=== PATIENT | male | born 1985 | race Caucasian/White ===

== ENCOUNTER 2018-10-17 12:37 | Emergency (ER) | payer OTHER ==
[~2018-10-17] VITALS: Ht 170.2 cm; Wt 107.7 kg
[2018-10-17 13:20] VITALS: BP 144/84
[2018-10-17] MEDS ORDERED: KETOROLAC 60 MG/2 ML VIAL IM ONE (15:35)
[2018-10-17 16:14] VITALS: BP 130/70
== END 2018-10-17 16:13 | disposition home or self-care (01) ==
LOC: MED 12:37
DX: I10 Essential (primary) hypertension (principal); M54.6 Pain in thoracic spine; R51 Headache; F17.200 Nicotine dependence, unspecified, uncomplicated
CPT/HCPCS: 96372; 99283; J1885

== ENCOUNTER 2020-04-25 10:59 | Emergency (ER) | payer OTHER, SELFPAY ==
[~2020-04-25] VITALS: Ht 170.2 cm; Wt 108.9 kg
[~2020-04-25 10:59] MED LIST: ASPI81CT95 PO; ATOR20TA40 PO; CLOP75TA55 PO; LANTUS SUBQ
[2020-04-25 11:13] VITALS: BP 142/104
--- NOTE | 2020-04-25 11:21 | NUR ---
35 Y/O MALE BIBS C/O HIGH BLOOD PRESSURE READING THIS MORNING AND WAS TOLD TO COME TO ER BY PHYSICIAN. CURRENT BP: 142/104. DENIES ANY HEADACHE, BLURRED VISION, N/V. DENIES ANY CP/SOB/COUGH. PT DENIES HAVING A HISTORY OF HTN, WAS JUST RECENTLY DIAGNOSED WITH DIABETES. VSS. AAOX4. PMH: DIABETES Rx: BLOOD THINNERS (UNABLE TO RECALL MED, DOESNT KNOW WHY HES TAKING IT)
[2020-04-25 13:22] VITALS: BP 142/104
--- NOTE | 2020-04-25 13:22 | NUR ---
Patient discharged with v/s stable. Written and verbal after care instructions given and explained. Patient verbalized understanding. Ambulatory with steady gait. All questions addressed prior to discharge. Advised to follow up with PMD.
== END 2020-04-25 13:22 | disposition home or self-care (01) ==
LOC: MED 10:59
DX: M79.602 Pain in left arm (principal); R03.0 Elevated blood-pressure reading, without diagnosis of hypertension; E11.9 Type 2 diabetes mellitus without complications; Z79.4 Long term (current) use of insulin; Z79.82 Long term (current) use of aspirin; Z79.899 Other long term (current) drug therapy
CPT/HCPCS: 99283

== ENCOUNTER 2020-05-07 03:27 | Emergency (ER) | payer OTHER, SELFPAY ==
[~2020-05-07] VITALS: Ht 172.7 cm; Wt 102.1 kg
[2020-05-07 03:34] VITALS: BP 146/99
--- NOTE | 2020-05-07 03:40 | NUR ---
PT AMBULATED TO ER BED 04
--- NOTE | 2020-05-07 03:47 | NUR ---
ERMD AT BEDSIDE FOR EVALUATION
--- NOTE | 2020-05-07 03:48 | NUR ---
35 Y/O MALE PRESENTED TO ED C/O "BURNING" SENSATION IN LEFT ARM AND FIRE/TINGLING SENSATION IN LEFT HAND THAT RADIATES TO CHEST X 2 WEEKS. PT STATES HE HAD A STROKE 2 WEEKS AGO AND SINCE THEN HE HAS HAD A BURNING/TINGLING SENSATION GOING FROM LEFT HAND TO CHEST. CHEST IS TENDER TO TOUCH ON LEFT SIDE. PT STATES HE JUST STARTED GABAPETIN X 3 DAYS W/ NO RELIEF. PT RESTING IN BED, LOCKED AND IN LOWEST POSITION ,HOB ELEVATED SIDE RAIL X1. RR EVEN AND UNLABORED. VSS. PMH: CVA , DM NKA
--- NOTE | 2020-05-07 03:48 | NUR ---
PER ERMD , LABS ONLY NO NEED FOR CHEST XRAY
[2020-05-07] MEDS ORDERED: HYDROcodone/APAP 10/325 MG 1 TAB TAB PO STA (03:51)
--- NOTE | 2020-05-07 04:13 | NUR ---
ERMD AT BEDSIDE FOR RE EVALUATION
--- NOTE | 2020-05-07 04:45 | NUR ---
BLOOD LABS COLLECTED AND WALKED TO LAB.
[2020-05-07 04:54] LABS: BASOPHILS # (AUTO) 0.1 K/uL (0.00-0.22); BASOPHILS % (AUTO) 0.7 % (0.0-2.0); EOSINOPHILS # (AUTO) 0.2 K/uL (0-0.4); EOSINOPHILS % (AUTO) 2.3 % (0.0-4.0); HEMATOCRIT 43.5 % (36-52); HEMOGLOBIN 14.5 g/dL (12.0-18.0); LYMPHOCYTES # (AUTO) 4.8 K/uL (2.0-11.5); LYMPHOCYTES % (AUTO) 47.9 % (20.5-51.1); MEAN CORPUSCULAR HEMOGLOBIN 30 pg (27-31); MEAN CORPUSCULAR HGB CONC 33 g/dL (33-37); MEAN CORPUSCULAR VOLUME 90.6 fL (80-94); MONOCYTES # (AUTO) 0.5 K/uL (0.8-1.0); MONOCYTES % (AUTO) 5.5 % (1.7-9.3); NEUTROPHILS # (AUTO) 4.4 K/uL (1.8-7.7); NEUTROPHILS % (AUTO) 43.6 % (42.2-75.2); PLATELET COUNT (AUTO) 326 K/uL (140-450); RED BLOOD CELL COUNT(AUTO) 4.79 MIL/uL (4.20-6.10); RED CELL DISTRIBUTION WIDTH 13.5 % (11.6-13.7)
[2020-05-07 05:11] LABS: ANION GAP 17.8 (8-16); CARBON DIOXIDE 24.4 mmol/L (21-32); CREATININE 0.9 mg/dL (0.6-1.3); POTASSIUM 4.2 mmol/L (3.5-5.1); TOTAL BILIRUBIN 0.2 mg/dL (0.0-1.0)
[2020-05-07 05:26] VITALS: BP 146/99
== END 2020-05-07 05:26 | disposition home or self-care (01) ==
LOC: MED 03:27
DX: R20.2 Paresthesia of skin (principal); I63.9 Cerebral infarction, unspecified; Z86.73 Personal history of transient ischemic attack (TIA), and cerebral infarction without residual deficits; Z86.39 Personal history of other endocrine, nutritional and metabolic disease; Z79.899 Other long term (current) drug therapy
CPT/HCPCS: 36415; 80053; 83690; 83880; 84484; 85025; 99283

== ENCOUNTER 2020-05-14 07:55 | Emergency (ER) | payer OTHER, SELFPAY ==
[~2020-05-14] VITALS: Ht 170.2 cm; Wt 99.8 kg
[2020-05-14 08:03] VITALS: BP 141/92
[2020-05-14 09:39] VITALS: BP 141/92
== END 2020-05-14 09:42 | disposition home or self-care (01) ==
LOC: MED 07:55
DX: S09.90XA Unspecified injury of head, initial encounter (principal); E11.9 Type 2 diabetes mellitus without complications; Z79.899 Other long term (current) drug therapy; Z86.73 Personal history of transient ischemic attack (TIA), and cerebral infarction without residual deficits; Z79.4 Long term (current) use of insulin; Z79.82 Long term (current) use of aspirin; W22.01XA Walked into wall, initial encounter; Y93.89 Activity, other specified; Y92.89 Other specified places as the place of occurrence of the external cause; Y99.8 Other external cause status
CPT/HCPCS: 70450; 99284

== ENCOUNTER 2020-06-13 08:22 | Emergency (ER) | payer OTHER, SELFPAY ==
[~2020-06-13] VITALS: Ht 198.1 cm; Wt 98.0 kg
[2020-06-13 08:25] VITALS: BP 135/96
--- NOTE | 2020-06-13 08:34 | NUR ---
PT AMBULATED TO BED 7, STEADY GAIT.
--- NOTE | 2020-06-13 08:53 | NUR ---
ERMD AT BEDSIDE.
[2020-06-13] MEDS ORDERED: diazePAM 5 MG TAB PO ONE (09:00)
--- NOTE | 2020-06-13 09:01 | NUR ---
35 Y/M PRESENTS TO ED C C/O INTERMITTENT SHARP L SIDED CP, TENDER TO TOUCH, RADIATING TO UPPER L BACK X SATURDAY. PT REPROTS PAIN RANGES FROM A 3-6 "SPASM LIKE". PAIN WORSE WITH MOVEMENT. PT ALSO REPORTS CONSTANT TINGLING IN L ARM, S/P [place] IN MARCH. PT DENIES SOB, NAUSEA, HEADACHE OR BLURRED VISION. March PT HAD A STROKE AND HEART ATTACK PMH- DM, HTN, L SIDED ARM WEAKNESS
[2020-06-13 09:07] LABS: BASOPHILS # (AUTO) 0.1 K/uL (0.00-0.22); BASOPHILS % (AUTO) 0.7 % (0.0-2.0); EOSINOPHILS # (AUTO) 0.2 K/uL (0-0.4); EOSINOPHILS % (AUTO) 1.8 % (0.0-4.0); HEMATOCRIT 44.2 % (36-52); LYMPHOCYTES # (AUTO) 2.2 K/uL (2.0-11.5); LYMPHOCYTES % (AUTO) 24.5 % (20.5-51.1); MEAN CORPUSCULAR HEMOGLOBIN 30 pg (27-31); MEAN CORPUSCULAR HGB CONC 34 g/dL (33-37); MEAN CORPUSCULAR VOLUME 89.7 fL (80-94); MONOCYTES # (AUTO) 0.4 K/uL (0.8-1.0); MONOCYTES % (AUTO) 4.4 % (1.7-9.3); NEUTROPHILS # (AUTO) 6.3 K/uL (1.8-7.7); NEUTROPHILS % (AUTO) 68.6 % (42.2-75.2); PLATELET COUNT (AUTO) 233 K/uL (140-450); RED BLOOD CELL COUNT(AUTO) 4.93 MIL/uL (4.20-6.10); RED CELL DISTRIBUTION WIDTH 13.2 % (11.6-13.7); WHITE BLOOD COUNT (AUTO) 9.1 K/uL (4.8-10.8)
[2020-06-13 09:29] LABS: ALBUMIN 3.5 g/dL (3.4-5.0); ANION GAP 11.3 (8-16); CARBON DIOXIDE 28.6 mmol/L (21-32); CREATININE 0.8 mg/dL (0.6-1.3); POTASSIUM 3.9 mmol/L (3.5-5.1); TOTAL BILIRUBIN 0.3 mg/dL (0.0-1.0)
--- NOTE | 2020-06-13 10:04 | NUR ---
PT ASLEEEP RESTING IN BED. RR EVEN AND UNLABORED.
[2020-06-13 10:15] LABS: CREATINE KINASE MB 0.6 ng/mL (0-3.6)
[2020-06-13 10:32] VITALS: BP 135/96
--- NOTE | 2020-06-13 10:32 | NUR ---
Patient discharged with v/s stable. Written and verbal after care instructions given and explained. Patient alert, oriented and verbalized understanding of instructions. Ambulatory with steady gait. All questions addressed prior to discharge. ID band removed. Patient advised to follow up with PMD. Rx of VALIUM given. Patient educated on indication of medication including possible reaction and side effects. Opportunity to ask questions provided and answered.
== END 2020-06-13 10:32 | disposition home or self-care (01) ==
LOC: MED 08:22
DX: R07.89 Other chest pain (principal); M62.838 Other muscle spasm; E11.9 Type 2 diabetes mellitus without complications; Z79.4 Long term (current) use of insulin; Z79.899 Other long term (current) drug therapy; Z79.82 Long term (current) use of aspirin; Z86.73 Personal history of transient ischemic attack (TIA), and cerebral infarction without residual deficits
CPT/HCPCS: 36415; 71045; 80053; 82550; 82553; 82948; 83690; 84484; 85025; 93005; 99285

== ENCOUNTER 2023-11-07 12:34 | Emergency (ER) | payer MEDICAID, OTHER ==
[~2023-11-07] VITALS: Ht 170.2 cm; Wt 99.8 kg
[2023-11-07 12:52] VITALS: BP 150/98; PULSE 95; RESP 16; TEMP 98.7; O2SAT 98
[2023-11-07] MEDS ORDERED: HYDR25SU91 RC (13:21)
[2023-11-07] MEDS ORDERED: DOCU-299 PO (13:21)
[2023-11-07] MEDS ORDERED: WITC1MED TP (13:21)
[2023-11-07 13:25] VITALS: BP 150/98; PULSE 95; RESP 16; TEMP 98.7; O2SAT 98
== END 2023-11-07 14:16 | disposition home or self-care (01) ==
LOC: MED 12:34
DX: K64.4 Residual hemorrhoidal skin tags (principal); E11.9 Type 2 diabetes mellitus without complications; Z86.73 Personal history of transient ischemic attack (TIA), and cerebral infarction without residual deficits; Z79.899 Other long term (current) drug therapy; Z79.4 Long term (current) use of insulin
CPT/HCPCS: 99283

== ENCOUNTER 2023-12-14 12:27 | Emergency (ER) | payer MEDICAID ==
[~2023-12-14] VITALS: Ht 170.2 cm; Wt 99.8 kg
[~2023-12-14 12:27] MED LIST changes: +DOCU-299 PO; +HYDR25SU91 RC; +WITC1MED TP
[2023-12-14 13:02] VITALS: BP 140/96; PULSE 88; RESP 16; TEMP 98.2; O2SAT 97
[2023-12-14 13:28] LABS: APPEARANCE,URINE CLEAR (CLEAR); BILIRUBIN,URINE NEGATIVE (NEGATIVE); BLOOD, URINE NEGATIVE (NEGATIVE); COLOR,URINE YELLOW (YELLOW); LEUKOCYTE ESTERASE ,URINE NEGATIVE (NEGATIVE); NITRITE, URINE NEGATIVE (NEGATIVE); PROTEIN,URINE NEGATIVE (NEGATIVE); UGLUCOSE 3+ (NEGATIVE); UROBILINOGEN,URINE 0.2 EU/dL (0.2 - 1)
[2023-12-14 13:29] LABS: BASOPHILS % (AUTO) 0.4 % (0.0-2.0); EOSINOPHILS # (AUTO) 0.1 K/uL (0-0.4); EOSINOPHILS % (AUTO) 1.4 % (0.0-4.0); HEMATOCRIT 46.4 % (36-52); HEMOGLOBIN 16.1 g/dL (12.0-18.0); LYMPHOCYTES % (AUTO) 37.8 % (20.5-51.1); MEAN CORPUSCULAR HEMOGLOBIN 31 pg (27-31); MEAN CORPUSCULAR HGB CONC 35 g/dL (33-37); MEAN CORPUSCULAR VOLUME 90.6 fL (80-94); MONOCYTES # (AUTO) 0.4 K/uL (0.8-1.0); MONOCYTES % (AUTO) 5.3 % (1.7-9.3); NEUTROPHILS # (AUTO) 4.3 K/uL (1.8-7.7); NEUTROPHILS % (AUTO) 55.1 % (42.2-75.2); PLATELET COUNT (AUTO) 183 K/uL (140-450); RED BLOOD CELL COUNT(AUTO) 5.12 MIL/uL (4.20-6.10); WHITE BLOOD COUNT (AUTO) 7.9 K/uL (4.8-10.8)
[2023-12-14 13:40] LABS: ANION GAP 12.1 (8-16); CALCIUM 8.9 mg/dL (8.5-10.1); CARBON DIOXIDE 28.5 mmol/L (21-32); CREATININE 0.8 mg/dL (0.6-1.3); POTASSIUM 4.6 mmol/L (3.5-5.1)
== END 2023-12-14 14:45 | disposition home or self-care (01) ==
LOC: MED 12:27
DX: E11.65 Type 2 diabetes mellitus with hyperglycemia (principal); Z86.73 Personal history of transient ischemic attack (TIA), and cerebral infarction without residual deficits; Z79.4 Long term (current) use of insulin; Z79.899 Other long term (current) drug therapy
CPT/HCPCS: 36415; 80048; 81003; 82948; 85025; 99283